=== PATIENT | female | born 1950 | race African-American/Black ===

== ENCOUNTER 2016-10-13 15:54 | Emergency (ER) | payer OTHER, MEDICARE ==
--- NOTE | ~2016-10-13 | EKG ---
PATIENT: SUDHA CORNEJO UNIT #: [id number] Ventricular Rate: 65 BPM Atrial Rate: 65 BPM P-R Interval: 154 ms QRS Duration: 88 ms Q-T Interval: 458 ms QTC Calculation(Bezet): 476 ms P Quinlan: 57 degrees Calculated R Quinlan: -24 degrees Calculated T Quinlan: 29 degrees Diagnosis Line: Normal sinus rhythm with sinus arrhythmia Diagnosis Line: Nonspecific ST and T wave abnormality Diagnosis Line: Prolonged QT Diagnosis Line: Abnormal ECG Diagnosis Line: No previous ECGs available Diagnosis Line: Confirmed by NOMAN VASQUEZ MD ([id number]) on Diagnosis Line: 10/14/2016 8:38:19 AM INTERPRETING MD: CHRISTINA MITCHELL
--- NOTE | ~2016-10-13 | CT71 ---
[facility] A Service [facility] RADIOLOGY TEXT RESULTS PATIENT: SUDHA CORNEJO LOCATION: SED : 52 UNIT #: [id number] AGE: [address]: JITENDRA WASHINGTON SEX: F ORDER DR: [id number] [place] [address] [id number] E MR#: [id number] Acc #: [id number] NAME: SUDHA CORNEJO : 1950 SEX: F STUDY DATE/TIME: 10/13/2016 17:03 UNIT: SED ROOM: STUDY DESCRIPTION: CT Head Wo Contrast Attending Physician: Jitendra Washington Ordering Physician: Dana Lane Primary Care Physician: Francis Burrows M.D. MEDICAL IMAGING REPORT This report is preliminary unless electronic signature is present. EXAM CT head INDICATION Headache. Dizziness and weakness. 1-day duration. TECHNIQUE CT of the head without contrast. This CT exam was performed with one or more of the following radiation dose reduction techniques: automatic exposure control, adjustment of mA and/or kV according to patient size, and iterative reconstruction. COMPARISON None available. FINDINGS Axial noncontrast images were obtained from the skull base to the vertex. Ventricular size and configuration are normal. There is no evidence of acute infarct or hemorrhage. There are no extraaxial fluid collections. No mass lesion or mass effect is seen. There are no skull fractures. IMPRESSION Normal noncontrast head CT. Dictated by... Abram Gomez M.D. THIS IS AN ELECTRONICALLY VERIFIED REPORT Abram Gomez M.D. at 10/14/2016 10:48 AM ADALID/farrah [facility] A Service [facility] RADIOLOGY TEXT RESULTS PATIENT: SUDHA CORNEJO LOCATION: SED : 51 UNIT #: [id number] AGE: [address]: JITENDRA WASHINGTON SEX: F ORDER DR: TD: 10/14/2016 08:02 JOB #: [id number] MEDICAL IMAGING REPORT Page 1 of 1
--- NOTE | ~2016-10-13 | CR63 ---
[facility] A Service of [facility] RADIOLOGY TEXT RESULTS PATIENT: SUDHA CORNEJO LOCATION: SED : 51 UNIT #: [id number] AGE: [address]: JITENDRA WASHINGTON SEX: F ORDER DR: [id number] [place] [address] [id number] E MR#: [id number] Acc #: [id number] NAME: SUDHA CORNEJO : 1950 SEX: F STUDY DATE/TIME: 10/13/2016 17:04 UNIT: SED ROOM: STUDY DESCRIPTION: CR Chest 2 View Attending Physician: Jitendra Washington Ordering Physician: Dana Lane Primary Care Physician: Francis Burrows M.D. MEDICAL IMAGING REPORT This report is preliminary unless electronic signature is present. EXAM Two-view chest INDICATION Dizziness and weakness. FINDINGS PA and lateral views of the chest without comparison. Heart and mediastinal contours normal. Lungs are clear. No pleural effusion. IMPRESSION Negative chest radiograph. Dictated by... Abram Gomez M.D. THIS IS AN ELECTRONICALLY VERIFIED REPORT Abram Gomez M.D. at 10/14/2016 10:48 AM Arina TD: 10/14/2016 08:04 JOB #: [id number] MEDICAL IMAGING REPORT Page 1 of 1
[2016-10-13] MEDS ORDERED: LOSARTAN PO (15:57)
[2016-10-13 16:45] LABS: BASOPHIL# 0.1 X10e3 (0-0.3); BASOPHIL% 1.1 % (0-2.5); EOSINOPHIL# 0.2 X10e3 (0-0.7); EOSINOPHIL% 3.1 % (0.0-7.0); HEMATOCRIT 40.7 % (35.0-45.0); HEMOGLOBIN 13.6 gm/dL (12.0-16.0); LYMPHOCYTE# 3.5 X10e3 (1.0-3.5); LYMPHOCYTE% 50.4 % (17.0-45.0); MEAN CELL VOLUME 93.2 FL (83-96); MEAN CORPUSCULAR HEMOGLOBIN 31.1 PG (28-34); MEAN CORPUSCULAR HGB CONC 33.4 g/dL (30-36); MEAN PLATELET VOLUME 6.9 FL (6.5-11.5); MONOCYTE# 0.6 X10e3 (0-1.0); MONOCYTE% 8.9 % (3.0-12.0); NEUTROPHIL# 2.5 X10e3 (1.5-7.1); NEUTROPHIL% 36.5 % (40-75); PLATELET COUNT 245 X10e3 (140-420); RED BLOOD COUNT 4.36 X10e (3.90-5.30); RED CELL DISTRIBUTION WIDTH 14.5 % (11.0-15.5); WHITE BLOOD COUNT 6.9 X10e3 (4.0-10.5)
[2016-10-13 16:49] LABS: DIFF IND NO
[2016-10-13 17:06] LABS: POC - CKMB <1.0 ng/mL (0.0-7.9); POC - TROPONIN <0.05 ng/mL (<=0.05)
[2016-10-13 17:07] LABS: ALBUMIN SERUM 4.3 g/dL (3.5-5.0); BILIRUBIN, DIRECT 0.1 mg/dL (0.0-0.2); BILIRUBIN,INDIRECT 1.1 mg/dL (0.0-0.9); BILIRUBIN,TOTAL 1.2 mg/dL (0.2-2.0); CALCIUM SERUM 8.9 mg/dL (8.4-10.2); GLOM FILT RATE Estimated 68.5 mL/min (>60); POTASSIUM 3.3 mmol/L (3.5-5.1); PROTEIN TOTAL SERUM 8.1 g/dL (6.0-8.3)
[2016-10-13 20:02] LABS: POC - CKMB <1.0 ng/mL (0.0-7.9)
[2016-10-13 20:03] LABS: POC - TROPONIN <0.05 ng/mL (<=0.05)
== END 2016-10-13 20:28 | disposition home or self-care (01) ==
LOC: SED 15:54
PROVIDERS: Nurse Practitioner
DX: R42 Dizziness and giddiness (principal); E87.6 Hypokalemia; R07.9 Chest pain, unspecified; R51 Headache; I10 Essential (primary) hypertension; K21.9 Gastro-esophageal reflux disease without esophagitis
CPT/HCPCS: 36415; 70450; 71020; 80048; 80076; 82553; 82947; 84484; 85025; 93005; 99285; J1885

== ENCOUNTER → 2016-12-04 | Outpatient (CLI) | payer OTHER ==
[~2016-12-04] MED LIST: LOSARTAN PO
--- NOTE | ~2016-12-04 | ST ---
Unit #: [id number] #: [id number] Patient: SUDHA CORNEJO [id number] [facility]. [address] [address] [id number] O MR#: [id number] NAME: SUDHA CORNEJO. : 1950 SEX: F STUDY DATE/TIME: 12/04/2016 UNIT: [facility] ROOM: STUDY DESCRIPTION: Attending Physician: Hardik Zarate M.D. Referring Physician: Hardik Zarate M.D. Primary Care Physician: Francis Burrows M.D. CARDIOLOGY REPORT EXAM Exercise Cardiolite stress test. FINDINGS Baseline EKG: Normal sinus rhythm with ventricular rate 63 beats per minute, left atrial abnormality, Q wave in V1 only, slow R-wave progression, T-wave inversion in inferior leads. PROCEDURE Patient walked on the treadmill for 7 minutes utilizing Lukas protocol, achieving a workload of 8.5 METs. Next, 95% of maximum target heart rate achieved at 148 beats per minute with a hypertensive blood pressure response of 180/92 mmHg. EKG during the test was equivocal to baseline. No acute ischemic changes. Patient had no complaints of chest pain, palpitations, or dizziness. Had some increased shortness of breath and fatigueness which resolved in recovery phase. IMPRESSION 1. Functional class III with a workload of 8.5 METs. 2. The patient walked for 7 minutes, achieving 95% of maximum target heart rate at 148 beats per minute with a blood pressure response of 180/92 mmHg. 3. Patient had no complaints of chest pain, palpitations, or dizziness. Had increased shortness of breath and fatigueness which resolved in recovery phase. 4. EKG during the test was equivocal to baseline. 5. Cardiolite was injected at maximum target heart rate. Radionuclide tests pending. Please correlate with nuclear images. Dictated by... Eduardo SandhuRPorshaNPorsha for Bala Burris TD: 12/04/2016 11:24 JOB #: [id number] Unit #: [id number] #: [id number] Patient: SUDHA CORNEJO CARDIOLOGY REPORT Page 1 of 1 X Jacqueline Sage APRN CARDIOLOGY REPORT
--- NOTE | ~2016-12-04 | TH ---
Unit #: [id number] #: [id number] Patient: SUDHA CORNEJO [id number] [address] [address] [id number] O MR#: [id number] NAME: SUDHA CORNEJO. : 1950 SEX: F STUDY DATE/TIME: 12/04/2016 UNIT: [facility] ROOM: STUDY DESCRIPTION: Attending Physician: Hardik Zarate M.D. Referring Physician: Hardik Zarate M.D. Primary Care Physician: Francis Burrows M.D. CARDIOLOGY REPORT EXAM Exercise Cardiolite stress test, nuclear portion. PROCEDURE Using technetium 99m labeled Cardiolite, rest and stress SPECT images were obtained. Multiple SPECT images were obtained in various views including horizontal and vertical long axis and short axis views of the left ventricle. Images were obtained by gated SPECT method. The patient was administered 10.89 mCi of Cardiolite at rest. Patient was administered 30.9 mCi of Cardiolite at peak exercise. Total exercise time is 7 minutes. On the stress images, there is normal perfusion noted. The rest images show normal perfusion. Comparing rest and stress images, there is no stress-induced ischemia noted. The left ventricular ejection fraction is calculated to be 80%. There is no focal wall motion abnormality seen. CONCLUSION 1. No stress-induced ischemia noted. 2. The left ventricular ejection fraction is calculated to be 80%. 3. There is no focal wall motion abnormality seen. 4. Normal exercise Cardiolite stress test. Dictated by... Bala Burris TD: 12/04/2016 15:58 JOB #: [id number] CARDIOLOGY REPORT Page 1 of 1 X Delia Orellana MD <ELECTRONICALLY SIGNED> 01/08/17 1524 CARDIOLOGY REPORT
== END | disposition home or self-care (01) ==
LOC: CNUC 08:15
DX: R07.9 Chest pain, unspecified (principal); R53.83 Other fatigue
CPT/HCPCS: 78452; 93017; A9500